=== PATIENT | female | born 1995 | race Asian ===

== ENCOUNTER 2017-10-10 00:35 | Emergency (ER) | payer MEDICAID ==
[2017-10-10 00:40] VITALS: BP 123/90; PULSE 92; RESP 16; TEMP 98.2; O2SAT 99
[2017-10-10] MEDS ORDERED: diphenhydrAMINE 25 MG CAP PO ONE (00:52)
--- NOTE | 2017-10-10 00:53 | EDPHY ---
H & P Stated Complaint: hives Time Seen by Provider: 10/10/17 00:41 HPI/ROS: HPI The patient presents with rash to her neck and left shoulder that have been present for the last 1 and 0.5 hr. She looked in the mirror and noticed that her neck anteriorly appeared red. She was with friends and they monitored the symptoms. Within about half an hour the redness had spread to her left shoulder. She denies any pain or itching. She has no prior history of similar rash. She denies any difficulty breathing, vomiting, wheezing, difficulty swallowing. She denies any new exposures to soaps, lotions, detergents, clothing, foods. She has no history of asthma or seasonal allergies. REVIEW OF SYSTEMS Constitutional: No fever, no chills. Eyes: No discharge. ENT: No sore throat. Cardiovascular: No chest pain, no palpitations. Respiratory: No cough, no shortness of breath. Gastrointestinal: No abdominal pain, no vomiting. Genitourinary: No hematuria. Musculoskeletal: No back pain. Skin: No rashes. Neurological: No headache. PMHx: Healthy Soc Hx: [employer] student PHYSICAL General Appearance: Alert, no distress Eyes: Pupils equal and round no pallor or injection ENT, Mouth: Mucous membranes moist, posterior pharynx without erythema or edema Respiratory: There are no retractions, lungs are clear to auscultation Cardiovascular: Regular rate and rhythm Gastrointestinal: Abdomen is soft and non-tender, no masses, bowel sounds normal Neurological: A&O, moves all extremities Skin: Warm and dry, anterior neck and left shoulder with urticarial rash present Musculoskeletal: Neck is supple non tender Extremities: symmetrical, full range of motion Psychiatric: Patient is oriented X 3, there is no agitation Source: Patient Exam Limitations: No limitations - Personal History LMP (Females 10-55): Now Current Tetanus/Diphtheria Vaccine: Unsure Current Tetanus Diphtheria and Acellular Pertussis (TDAP): Unsure - Medical/Surgical History Hx Asthma: No Hx Chronic Respiratory Disease: No Hx Diabetes: No Hx Cardiac Disease: No Hx Renal Disease: No Hx Cirrhosis: No Hx Alcoholism: No Hx HIV/AIDS: No Hx Splenectomy or Spleen Trauma: No - Social History Smoking Status: Never smoked Constitutional: Initial Vital Signs Temperature (C) 36.8 C 10/10/17 00:38 Heart Rate 92 10/10/17 00:38 Respiratory Rate 16 03/20/18 00:38 Blood Pressure 123/90 H 10/10/17 00:38 O2 Sat (%) 99 10/10/17 00:38 O2 Delivery Mode Room Air Allergies/Adverse Reactions: No Known Allergies Allergy (Unverified 10/10/17 00:39) Medical Decision Making Differential Diagnosis: 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 There are no associated symptoms. This rash appears to be urticarial in nature. Cellulitis would be unusual given the appearance. It is unclear what has caused urticaria. Patient does explain that she is experiencing significant social stressors currently and wonders if this is what could be provoking it. This is certainly a possibility. I doubt any anaphylaxis given she has the rash only. In the emergency department, patient was given a dose of Benadryl. I have advised her to continue this every 6 hr until the rash improves. She can follow up at [facility] or in the emergency department as needed if her symptoms worsen whatsoever. - Data Points Medications Given: Discontinued Medications Diphenhydramine HCl (Benadryl) 25 mg PO EDNOW ONE Stop: 10/10/17 00:53 Last Admin: 10/10/17 00:57 Dose: 25 mg Departure - Departure Disposition: Home, Routine, Self-Care Clinical Impression: Urticaria Condition: Good Instructions: Urticaria (ED) Additional Instructions: I recommend you take Benadryl 25 mg every 6 hr until the rash improves. You should return if you experience any vomiting, difficulty breathing, or swelling of your throat. Referrals: [facility],. [Clinic] - As per Instructions
== END 2017-10-10 00:59 | disposition home or self-care (01) ==
DX: L50.9 Urticaria, unspecified (principal)